=== PATIENT | male | born 1965 | race African-American/Black ===

== ENCOUNTER 2022-08-12 11:50 | Inpatient (IN) | payer OTHER ==
[2022-08-12 12:56] VITALS: BMI 24.9
[2022-08-12] MEDS ORDERED: MAGNESIUM HYDROX 2400MG/30ML ORAL SUSPENSION 30 ML CUP PO PRN (15:34)
[2022-08-12] MEDS ORDERED: DICYCLOMINE HCL 10 MG CAPSULE PO PRN (15:34)
[2022-08-12] MEDS ORDERED: ACETAMINOPHEN 325 MG TABLET (FP) PO PRN ×2 (15:34)
[2022-08-12] MEDS ORDERED: cloNIDine HCL 0.1 MG TABLET PO PRN (15:34)
[2022-08-12] MEDS ORDERED: IBUPROFEN 600 MG TABLET (FP) PO PRN (15:34)
[2022-08-12] MEDS ORDERED: LOPERAMIDE HCL 2 MG CAPSULE PO PRN (15:34)
[2022-08-12] MEDS ORDERED: BENZOCAINE/MENTHOL (CHLORASEPTIC ) LOZENGE MM PRN (15:34)
[2022-08-12] MEDS ORDERED: IBUPROFEN 400 MG TABLET (FP) PO PRN (15:34)
[2022-08-12] MEDS ORDERED: ONDANSETRON *ODT* 4 MG TABLET SL PRN (15:34)
[2022-08-12] MEDS ORDERED: POLYETHYLENE GLYCOL (HEALTHYLAX) 3350 17 GM PACKET PO PRN (15:34)
[2022-08-12] MEDS ORDERED: MAG HYDROX/AL HYDROX/SIMETH 30 ML UNIT-DOSE CUP PO PRN (15:34)
[2022-08-12] MEDS ORDERED: NALOXONE HCL (KLOXXADO) 8 MG SPRAY NS PRN (15:34)
[2022-08-12] MEDS ORDERED: METHOCARBAMOL 500 MG TABLET PO PRN (15:34)
[2022-08-12] MEDS ORDERED: BISMUTH SUBSALICYLATE 524 MG/30 ML PO PRN (15:34)
[2022-08-12] MEDS ORDERED: NICOTINE 10 MG CARTRIDGE (INHALER) IH PRN (15:34)
[2022-08-12] MEDS ORDERED: methaDONE HCL 10 MG TABLET (FOR DETOX USE ONLY) PO ONE (16:00)
[2022-08-12] MEDS ORDERED: methaDONE HCL 10 MG TABLET PO ONE (18:12)
[2022-08-12] MEDS ORDERED: THIAMINE HCL 100 MG TABLET (FP) PO SCH (22:00)
[2022-08-12] MEDS ORDERED: MELATONIN 5 MG TABLETS PO SCH (22:00)
[2022-08-13] MEDS: ALBUTEROL SO4 HFA INHALER IH PRN ×2 (04:55→14:31)
[2022-08-13] MEDS ORDERED: PHENYLEPHRINE HCL/COCOA BUTTER SUPPOSITORY RC PRN (08:23)
[2022-08-13] MEDS ORDERED: PRENATAL VITAMINS W/ FOLIC ACID TABLET (FP) PO SCH (10:00)
[2022-08-13] MEDS ORDERED: NICOTINE 21 MG/24 HOURS TOPICAL PATCH TD SCH (10:00)
[2022-08-13 11:14] VITALS: RESP 18
[2022-08-13] MEDS ORDERED: diazePAM 5 MG TABLET PO PRN (12:37)
[2022-08-13] MEDS ORDERED: GABAPENTIN 100 MG CAPSULE PO SCH (14:00)
[2022-08-13 15:05] VITALS: BP 150/90; PULSE 66; TEMP 98
[2022-08-13 17:53] LABS: HEMATOCRIT 37.8 % (35.4-49); HEMOGLOBIN 12.6 GM/dL (11.7-16.9); MCH 30.2 pg (25.7-33.7); MCHC 33.2 g/dl (32.0-35.9); MEAN CELL VOLUME 90.9 fl (80-96); MEAN PLT VOLUME 7.8 fl (7.5-11.1); PLATELET COUNT 354 10^3/uL (134-434); RBC 4.16 M/mm3 (4.00-5.60); RDW 14.2 % (11.9-15.9); WHITE BLOOD COUNT 5.3 K/mm3 (4.0-10.0)
[2022-08-13 18:04] LABS: ALBUMIN 2.6 g/dl (3.4-5.0)
[2022-08-13 18:05] LABS: BLOOD UREA NITROGEN 10.5 mg/dL (7-18); CALCIUM 8.4 mg/dL (8.5-10.1)
[2022-08-13 18:07] LABS: CREATININE 1.1 mg/dL (0.55-1.3)
[2022-08-13 18:09] LABS: BILIRUBIN,TOTAL 0.7 mg/dL (0.2-1); TOT PROT 5.4 g/dl (6.4-8.2)
[2022-08-14] MEDS ORDERED: methaDONE HCL 10 MG TABLET (FOR DETOX USE ONLY) PO ONE (10:00)
[2022-08-16] MEDS ORDERED: methaDONE HCL 10 MG TABLET (FOR DETOX USE ONLY) PO ONE (10:00)
== END 2022-08-13 14:54 | disposition left against medical advice (07) | DRG 770 ==
LOC: YASAS 11:50 → Y3N 15:45
PROVIDERS: ADMIT Allergy & Immunology; ATTEND Surgery
PROC: HZ2ZZZZ Detoxification Services for Substance Abuse Treatment (ICD-10-PCS; principal; 2022-08-12)
DX: F11.23 Opioid dependence with withdrawal (principal); F14.20 Cocaine dependence, uncomplicated; F12.20 Cannabis dependence, uncomplicated; F17.210 Nicotine dependence, cigarettes, uncomplicated; M19.90 Unspecified osteoarthritis, unspecified site; K64.9 Unspecified hemorrhoids; R76.11 Nonspecific reaction to tuberculin skin test without active tuberculosis; Z99.89 Dependence on other enabling machines and devices; Z56.0 Unemployment, unspecified; Z59.00 Homelessness unspecified
CPT/HCPCS: 36415; 80053; 85027; 86780; 93005; 93010; C9803-CS; U0003; U0005